=== PATIENT | male | born 1985 | race Two or more races ===

== ENCOUNTER → 2025-06-09 | Outpatient (CLI) | payer OTHER, SELFPAY ==
--- NOTE | 2025-06-09 13:30 | XR_ITS ---
Examination: Ultrasound soft tissue extremity right groin TECHNIQUE: Grayscale sonographic images soft tissue right groin Date and time: June 09, 2025 1345 hours INDICATIONS: Right groin region pain with palpable lump 2 months, history inguinal hernias FINDINGS: Right groin hernia containing bowel 3.7 x 2.1 x 5.2 cm IMPRESSION: Right groin hernia containing bowel, 3.7 x 2.1 x 5.2 cm
== END | disposition home or self-care (01) ==
LOC: CDIM 13:22
PROVIDERS: PCP Family Medicine
DX: S76.211A Strain of adductor muscle, fascia and tendon of right thigh, initial encounter (principal); X58.XXXA Exposure to other specified factors, initial encounter; K46.9 Unspecified abdominal hernia without obstruction or gangrene
CPT/HCPCS: 76882